=== PATIENT | male | born 1980 | race Caucasian/White ===

== ENCOUNTER 2021-01-12 17:14 | Inpatient (IN) | payer OTHER ==
[2021-01-12] MEDS ORDERED: ETOMIDATE 2 MG/ML 10 ML VIAL IVP STA (17:21)
[2021-01-12] MEDS ORDERED: ROCURONIUM 10 MG/ML (5 ML VIAL) IV ONE (17:21)
[2021-01-12] MEDS ORDERED: SODIUM CHLORIDE 0.9% 1,000 ML IV STA (17:27)
--- NOTE | 2021-01-12 17:31 | ED ---
General Adult HPI - General Chief complaint: Alcohol Stated complaint: Unresponsive Source: EMS Mode of arrival: EMS Limitations: no limitations - History of Present Illness Initial comments: Jimi is a 40-year-old male who presents the emergency department today via ambulance unresponsive. History is provided by EMS who interacted with the friend who found unresponsive at his home. Friend reported to EMS that Jimi is an alcoholic regular drinker, apparently was drinking earlier in the day and use day at home breath alcohol test this stated his alcohol was over 200. Friend apparently returned at home this evening and found him unresponsive outside on the concrete. Patient was breathing and had a pulse but would not wake up so EMS was contacted. EMS arrived on scene found the patient on the ground, unresponsive, blood glucose was in the 180s, patient was hypertensive and tachycardic. IV access was obtained patient was given Narcan with no improvement, and oropharyngeal airway was placed respirations were assisted with BVM and the patient was transported the hospital for further treatment. - Related Data Allergies Allergy/AdvReac Type Severity Reaction Status Date / Time Unable to Assess Allergy Verified 01/12/21 17:26 Review of Systems ROS Statement: Those systems with pertinent positive or pertinent negative responses have been documented in the HPI. ROS Other: All systems not noted in ROS Statement are negative. Past Medical History Past Medical History: Unable to Obtain History of Any Multi-Drug Resistant Organisms: Unobtainable Past Surgical History: Unable to Obtain Past Psychological History: Unable to Obtain Smoking Status: Unknown if ever smoked Past Alcohol Use History: Unable to Obtain Past Drug Use History: Unable to Obtain General Exam - General Exam Comments Initial Comments: Physical Exam GENERAL: Unresponsive HENT: Normocephalic, Atraumatic. Left ear is dark purple, appears to have been laid on for extended period of time Dried vomitus on left side of face/head EYES: Pupils 3mm equal and reactive PULMONARY: Minimal respiratory effort prior to intubation Coarse breath sounds bilaterally after CARDIOVASCULAR: Tachycardia, regular ABDOMEN: Soft normal bowel sounds. SKIN: Abrasion to left forearm, left knee : Normal external genitalia NEUROLOGIC: Unresponsive Did have episode of coughing but did not attempt to move remove OPA MUSCULOSKELETAL: abrasions, no deformity PSYCHIATRIC: Unable to assess Limitations: no limitations Course Vital Signs 01/12/21 01/12/21 01/12/21 17:15 17:26 18:38 Temperature 97.6 F 96.6 F L Pulse Rate 139 H 149 H 104 H Respiratory 10 L 16 14 Rate Blood Pressure 170/112 129/88 O2 Sat by Pulse 100 98 100 Oximetry 01/12/21 01/12/21 01/12/21 18:45 19:00 19:10 Temperature 96.4 F L 95.0 F L Pulse Rate 100 96 95 Respiratory 17 18 14 Rate Blood Pressure 118/83 113/72 113/72 O2 Sat by Pulse 100 99 99 Oximetry 01/12/21 01/12/21 01/12/21 19:20 19:30 19:40 Temperature 96 F L 95.5 F L Pulse Rate 94 96 94 Respiratory 14 14 14 Rate Blood Pressure 119/79 119/79 118/70 O2 Sat by Pulse 99 97 97 Oximetry EKG Findings - EKG Comments: EKG Findings:: EKG was obtained due to tachycardia, EKG obtained at 1748 rate is 107 rhythm is sinus there is a normal axis, there are normal intervals, LA 148, QRS 90, QTC 467 there are no acute ST elevations or depressions there is no evidence of ischemia or infarction. Procedures - Intubation Sedative: Etomidate Paralytic: Rocuronium Laryngoscope: Kelsey Size: 4 ET Tube Size: 8 ET Tube Uncuffed: No Tube Secured Depth (cm): 23 Tube Placement Confirmation: visualized tube passing through cords, equal breath sounds bilaterally, no breath sounds over epigastrium Patient Tolerated Procedure: well Intubation Complications: none Medical Decision Making - Medical Decision Making Patient was seen and evaluated immediately upon arrival to the emergency department Patient was unresponsive no gag reflex had an oral pharyngeal airway in place IV access was obtained, patient's jaw was clamped ounce RSI medications were used and patient was intubated Sedation labs and imaging were obtained Labs are significant for evidence of hemoconcentration and dehydration hemoglobin is 18, IV fluids are infusing Alcohol level significantly elevated at 556 CT of the head was negative for acute findings The patient vital signs normalized after appropriate sedation This time patient will be admitted to the ICU for alcohol intoxication requiring intubation due to respiratory failure Patient care was discussed with grooving lathe tender on-call Dr. Nate wilkinson who accepts the patient to the ICU, currently no ICU beds available therefore patient will remain in the ER Patient care was discussed with sound physician Dr. Roberson who accepts the admission, we did discuss uncertain if patient intended self-harm - Lab Data Result diagrams: 01/12/21 17:47 01/12/21 17:47 Lab Results 01/12/21 01/12/21 01/12/21 Range/Units 17:37 17:47 17:47 WBC 8.8 (3.8-10.6) k/uL RBC 4.98 (4.30-5.90) m/uL Hgb 18.0 H (13.0-17.5) gm/dL Hct 53.5 H (39.0-53.0) % MCV 107.3 H (80.0-100.0) fL MCH 36.2 H (25.0-35.0) pg MCHC 33.7 (31.0-37.0) g/dL RDW 12.9 (11.5-15.5) % Plt Count 140 L (150-450) k/uL MPV 8.1 Neutrophils % 71 % Lymphocytes % 21 % Monocytes % 3 % Eosinophils % 1 % Basophils % 1 % Neutrophils # 6.3 (1.3-7.7) k/uL Lymphocytes # 1.9 (1.0-4.8) k/uL Monocytes # 0.3 (0-1.0) k/uL Eosinophils # 0.1 (0-0.7) k/uL Basophils # 0.1 (0-0.2) k/uL Macrocytosis Moderate PT 9.8 (9.0-12.0) sec INR 0.9 (<1.2) Sample Site ABG pH (7.35-7.45) ABG pCO2 (35-45) mmHg ABG pO2 (83-108) mmHg ABG HCO3 (21-25) mmol/L ABG Total CO2 (19-24) mmol/L ABG O2 Saturation (94-97) % ABG Base Excess mmol/L David Test FiO2 % Sodium (137-145) mmol/L Potassium (3.5-5.1) mmol/L Chloride (98-107) mmol/L Carbon Dioxide (22-30) mmol/L Anion Gap mmol/L BUN (9-20) mg/dL Creatinine (0.66-1.25) mg/dL Est GFR (CKD-EPI)AfAm (>60 ml/min/1.73 sqM) Est GFR (CKD-EPI)NonAf (>60 ml/min/1.73 sqM) Glucose (74-99) mg/dL Lactic Ac Sepsis Rflx Plasma Lactic Acid Jose (0.7-2.0) mmol/L Calcium (8.4-10.2) mg/dL Total Bilirubin (0.2-1.3) mg/dL AST (17-59) U/L ALT (4-49) U/L Alkaline Phosphatase (38-126) U/L Creatine Kinase (55-170) U/L Total Protein (6.3-8.2) g/dL Albumin (3.5-5.0) g/dL Urine Color Light Yellow Urine Appearance Clear (Clear) Urine pH 5.0 (5.0-8.0) Ur Specific Marion 1.010 (1.001-1.035) Urine Protein Trace H (Negative) Urine Glucose (UA) Trace H (Negative) Urine Ketones Negative (Negative) Urine Blood Trace H (Negative) Urine Nitrite Negative (Negative) Urine Bilirubin Negative (Negative) Urine Urobilinogen <2.0 (<2.0) mg/dL Ur Leukocyte Esterase Negative (Negative) Urine WBC <1 (0-5) /hpf Urine Mucus Rare H (None) /hpf Salicylates mg/dL Urine Opiates Screen Not Detected (NotDetected) Ur Oxycodone Screen Not Detected (NotDetected) Urine Methadone Screen Not Detected (NotDetected) Ur Propoxyphene Screen Not Detected (NotDetected) Acetaminophen ug/mL Ur Barbiturates Screen Not Detected (NotDetected) U Tricyclic Antidepress Not Detected (NotDetected) Ur Phencyclidine Scrn Not Detected (NotDetected) Ur Amphetamines Screen Not Detected (NotDetected) U Methamphetamines Scrn Not Detected (NotDetected) U Benzodiazepines Scrn Not Detected (NotDetected) Urine Cocaine Screen Not Detected (NotDetected) U Marijuana (THC) Screen Not Detected (NotDetected) Serum Alcohol mg/dL Coronavirus (PCR) (Not Detectd) 01/12/21 01/12/21 01/12/21 Range/Units 17:47 17:47 18:21 WBC (3.8-10.6) k/uL RBC (4.30-5.90) m/uL Hgb (13.0-17.5) gm/dL Hct (39.0-53.0) % MCV (80.0-100.0) fL MCH (25.0-35.0) pg MCHC (31.0-37.0) g/dL RDW (11.5-15.5) % Plt Count (150-450) k/uL MPV Neutrophils % % Lymphocytes % % Monocytes % % Eosinophils % % Basophils % % Neutrophils # (1.3-7.7) k/uL Lymphocytes # (1.0-4.8) k/uL Monocytes # (0-1.0) k/uL Eosinophils # (0-0.7) k/uL Basophils # (0-0.2) k/uL Macrocytosis PT (9.0-12.0) sec INR (<1.2) Sample Site ABG pH (7.35-7.45) ABG pCO2 (35-45) mmHg ABG pO2 (83-108) mmHg ABG HCO3 (21-25) mmol/L ABG Total CO2 (19-24) mmol/L ABG O2 Saturation (94-97) % ABG Base Excess mmol/L David Test FiO2 % Sodium 149 H (137-145) mmol/L Potassium 5.3 H (3.5-5.1) mmol/L Chloride 113 H (98-107) mmol/L Carbon Dioxide 17 L (22-30) mmol/L Anion Gap 19 mmol/L BUN 7 L (9-20) mg/dL Creatinine 0.72 (0.66-1.25) mg/dL Est GFR (CKD-EPI)AfAm >90 (>60 ml/min/1.73 sqM) Est GFR (CKD-EPI)NonAf >90 (>60 ml/min/1.73 sqM) Glucose 135 H (74-99) mg/dL Lactic Ac Sepsis Rflx Y Plasma Lactic Acid Jose 3.0 H* (0.7-2.0) mmol/L Calcium 8.2 L (8.4-10.2) mg/dL Total Bilirubin 0.6 (0.2-1.3) mg/dL AST 63 H (17-59) U/L ALT 45 (4-49) U/L Alkaline Phosphatase 85 (38-126) U/L Creatine Kinase 445 H (55-170) U/L Total Protein 8.7 H (6.3-8.2) g/dL Albumin 5.0 (3.5-5.0) g/dL Urine Color Urine Appearance (Clear) Urine pH (5.0-8.0) Ur Specific Marion (1.001-1.035) Urine Protein (Negative) Urine Glucose (UA) (Negative) Urine Ketones (Negative) Urine Blood (Negative) Urine Nitrite (Negative) Urine Bilirubin (Negative) Urine Urobilinogen (<2.0) mg/dL Ur Leukocyte Esterase (Negative) Urine WBC (0-5) /hpf Urine Mucus (None) /hpf Salicylates <1.0 mg/dL Urine Opiates Screen (NotDetected) Ur Oxycodone Screen (NotDetected) Urine Methadone Screen (NotDetected) Ur Propoxyphene Screen (NotDetected) Acetaminophen <10.0 ug/mL Ur Barbiturates Screen (NotDetected) U Tricyclic Antidepress (NotDetected) Ur Phencyclidine Scrn (NotDetected) Ur Amphetamines Screen (NotDetected) U Methamphetamines Scrn (NotDetected) U Benzodiazepines Scrn (NotDetected) Urine Cocaine Screen (NotDetected) U Marijuana (THC) Screen (NotDetected) Serum Alcohol 556 H* mg/dL Coronavirus (PCR) (Not Detectd) 01/12/21 01/12/21 Range/Units 18:40 19:14 WBC (3.8-10.6) k/uL RBC (4.30-5.90) m/uL Hgb (13.0-17.5) gm/dL Hct (39.0-53.0) % MCV (80.0-100.0) fL MCH (25.0-35.0) pg MCHC (31.0-37.0) g/dL RDW (11.5-15.5) % Plt Count (150-450) k/uL MPV Neutrophils % % Lymphocytes % % Monocytes % % Eosinophils % % Basophils % % Neutrophils # (1.3-7.7) k/uL Lymphocytes # (1.0-4.8) k/uL Monocytes # (0-1.0) k/uL Eosinophils # (0-0.7) k/uL Basophils # (0-0.2) k/uL Macrocytosis PT (9.0-12.0) sec INR (<1.2) Sample Site rbrach ABG pH 7.25 L (7.35-7.45) ABG pCO2 50 H (35-45) mmHg ABG pO2 >400 H (83-108) mmHg ABG HCO3 22 (21-25) mmol/L ABG Total CO2 23 (19-24) mmol/L ABG O2 Saturation 99.8 H (94-97) % ABG Base Excess -5.5 mmol/L David Test Yes FiO2 100 % Sodium (137-145) mmol/L Potassium (3.5-5.1) mmol/L Chloride (98-107) mmol/L Carbon Dioxide (22-30) mmol/L Anion Gap mmol/L BUN (9-20) mg/dL Creatinine (0.66-1.25) mg/dL Est GFR (CKD-EPI)AfAm (>60 ml/min/1.73 sqM) Est GFR (CKD-EPI)NonAf (>60 ml/min/1.73 sqM) Glucose (74-99) mg/dL Lactic Ac Sepsis Rflx Plasma Lactic Acid Jose (0.7-2.0) mmol/L Calcium (8.4-10.2) mg/dL Total Bilirubin (0.2-1.3) mg/dL AST (17-59) U/L ALT (4-49) U/L Alkaline Phosphatase (38-126) U/L Creatine Kinase (55-170) U/L Total Protein (6.3-8.2) g/dL Albumin (3.5-5.0) g/dL Urine Color Urine Appearance (Clear) Urine pH (5.0-8.0) Ur Specific Marion (1.001-1.035) Urine Protein (Negative) Urine Glucose (UA) (Negative) Urine Ketones (Negative) Urine Blood (Negative) Urine Nitrite (Negative) Urine Bilirubin (Negative) Urine Urobilinogen (<2.0) mg/dL Ur Leukocyte Esterase (Negative) Urine WBC (0-5) /hpf Urine Mucus (None) /hpf Salicylates mg/dL Urine Opiates Screen (NotDetected) Ur Oxycodone Screen (NotDetected) Urine Methadone Screen (NotDetected) Ur Propoxyphene Screen (NotDetected) Acetaminophen ug/mL Ur Barbiturates Screen (NotDetected) U Tricyclic Antidepress (NotDetected) Ur Phencyclidine Scrn (NotDetected) Ur Amphetamines Screen (NotDetected) U Methamphetamines Scrn (NotDetected) U Benzodiazepines Scrn (NotDetected) Urine Cocaine Screen (NotDetected) U Marijuana (THC) Screen (NotDetected) Serum Alcohol mg/dL Coronavirus (PCR) Not Detected (Not Detectd) Critical Care Time Critical Care Time: Yes Total Critical Care Time: 30 Disposition Clinical Impression: Alcoholic intoxication Disposition: ADMITTED IP TO THIS [facility] Condition: Serious Referrals: None,Stated [Primary Care Provider] - 1-2 days
[2021-01-12 17:43] LABS: Appearance,Urine Clear (Clear); Bilirubin,Urine Negative (Negative); Blood,Urine Trace (Negative); Color,Urine Light Yellow; Glucose,Urine (UA) Trace (Negative); Ketones,Urine Negative (Negative); Leukocyte Esterase,Urine Negative (Negative); Mucus,Urine Rare /hpf; Nitrite,Urine Negative (Negative); Protein,Urine Trace (Negative); Urobilinogen,Urine <2.0 mg/dL (<2.0); WBC,Urine <1 /hpf (0-5)
[2021-01-12 17:51] LABS: Amphetamine Screen,Urine Not Detected (NotDetected); Barbiturate Screen,Urine Not Detected (NotDetected); Benzodiazepines Screen,Urine Not Detected (NotDetected); Cocaine Screen,Urine Not Detected (NotDetected); Methadone Screen, Urine Not Detected (NotDetected); Opiate Screen,Urine Not Detected (NotDetected); Oxycodone Screen, Urine Not Detected (NotDetected); Phencyclidine Screen,Urine Not Detected (NotDetected); Tricyclic Antidepressant,Urine Not Detected (NotDetected); Urn Cannabinoid Scrn Not Detected (NotDetected)
[2021-01-12 17:56] LABS: Basophils # (A) 0.1 k/uL (0-0.2); Basophils % (A) 1 %; Eosinophils # (A) 0.1 k/uL (0-0.7); Eosinophils % (A) 1 %; HCT 53.5 % (39.0-53.0); Lymphocytes # (A) 1.9 k/uL (1.0-4.8); Lymphocytes % (A) 21 %; MCH 36.2 pg (25.0-35.0); MCHC 33.7 g/dL (31.0-37.0); MCV 107.3 fL (80.0-100.0); Macrocytosis Moderate; Mean Platelet Volume 8.1; Monocytes # (A) 0.3 k/uL (0-1.0); Monocytes % (A) 3 %; Neutrophils # (A) 6.3 k/uL (1.3-7.7); Neutrophils % (A) 71 %; Platelet Count 140 k/uL (150-450); RBC 4.98 m/uL (4.30-5.90); RDW 12.9 % (11.5-15.5); WBC 8.8 k/uL (3.8-10.6)
--- NOTE | 2021-01-12 17:59 | XR ---
EXAMINATION TYPE: XR chest 1V portable DATE OF EXAM: 01/12/2021 COMPARISON: NONE HISTORY: Respiratory failure TECHNIQUE: Single view FINDINGS: Endotracheal tube is 3.5 cm from the girish. There is nasogastric tube looped in the stomac h. Heart and mediastinum appear normal. Lungs are clear of infiltrate. There is no pleural effusion o r pneumothorax. There are chest leads. IMPRESSION: No active cardiopulmonary disease. Tubing in good position.
[2021-01-12 18:00] LABS: INR 0.9 (<1.2); Prothrombin Time 9.8 sec (9.0-12.0)
[2021-01-12 18:06] LABS: ALT 45 U/L (4-49); AST 63 U/L (17-59); Acetaminophen <10.0 ug/mL; African American GFR (CKD) >90 (>60 ml/min/1.73 sqM); Alkaline Phosphatase 85 U/L (38-126); Anion Gap 19 mmol/L; Blood Urea Nitrogen 7 mg/dL (9-20); Calcium 8.2 mg/dL (8.4-10.2); Carbon Dioxide 17 mmol/L (22-30); Chloride 113 mmol/L (98-107); Creatine Kinase 445 U/L (55-170); Glucose 135 mg/dL (74-99); Non-African American GFR(CKD) >90 (>60 ml/min/1.73 sqM); Salicylate <1.0 mg/dL; Sodium 149 mmol/L (137-145); Total Bilirubin 0.6 mg/dL (0.2-1.3); Total Protein 8.7 g/dL (6.3-8.2)
[2021-01-12 18:20] LABS: Alcohol 556 mg/dL
--- NOTE | 2021-01-12 18:32 | CT ---
EXAMINATION TYPE: CT brain wo con DATE OF EXAM: 01/12/2021 COMPARISON: None HISTORY: unresponsive CT DLP: 1125.4 mGycm Automated exposure control for dose reduction was used. Ventricles have normal size. There is no mass effect nor midline shift. There is no sign of intracran ial hemorrhage. The calvarium is intact. There is normal aeration of the mastoid sinuses. Skull base is intact. IMPRESSION: Negative unenhanced head CT scan.
[2021-01-12 18:34] LABS: Potassium 5.3 mmol/L (3.5-5.1)
[2021-01-12] MEDS ORDERED: NALOXONE 0.4 MG/ML 1 ML VIAL IV PRN (19:07)
[2021-01-12 19:17] LABS: ABG Base Excess -5.5 mmol/L; ABG HCO3 22 mmol/L (21-25); ABG Oxygen Saturation 99.8 % (94-97); ABG PCO2 50 mmHg (35-45); ABG PH 7.25 (7.35-7.45); ABG PO2 >400 mmHg (83-108); ABG TCO2 23 mmol/L (19-24); Allen Test Performed? Yes
[2021-01-12] MEDS: SODIUM CHLORIDE 0.9% 1,000 ML IV SCH (19:22)
[2021-01-12] MEDS: PANTOPRAZOLE 40 MG/10 ML VIAL IVP SCH (21:53)
[2021-01-12] MEDS: THIAMINE 100 MG/ML 2 ML VIAL IVP SCH (21:54)
--- NOTE | 2021-01-13 01:02 | P.HPIM ---
History of Present Illness H&P Date: 01/12/21 Chief Complaint: Unresponsive 40-year-old male unknown past medical history Patient was home when he was found unresponsive by his friend who reports that patient drinks heavily every day. Patient was seen by his friend in the morning when he was drinking and then was found later a site his home on a concrete unresponsive by his friend in the evening claims that he had pulse at that time he notified EMS who found that he has a blood sugar of 180 gave him some Narcan with no improvement Patient was brought into the hospital intubated. Blood work showed A alcohol level of 556, CT of the head was negative for any acute pathology. Blood work showed mixed respiratory and metabolic acidosis Review of Systems ROS unobtainable: due to mental status Past Medical History Past Medical History: Unable to Obtain History of Any Multi-Drug Resistant Organisms: Unobtainable Past Surgical History: Unable to Obtain Past Psychological History: Unable to Obtain Smoking Status: Unknown if ever smoked Past Alcohol Use History: Unable to Obtain Past Drug Use History: Unable to Obtain - Past Family History Family Family Medical History: Unable to Obtain Medications and Allergies Allergies Allergy/AdvReac Type Severity Reaction Status Date / Time Unable to Assess Allergy Verified 01/12/21 17:26 Physical Exam Vitals: Vital Signs Temp Pulse Resp BP Pulse Ox 01/12/21 19:40 95.5 F L 94 14 118/70 97 01/12/21 19:30 96 14 119/79 97 01/12/21 19:20 96 F L 94 14 119/79 99 01/12/21 19:10 95 14 113/72 99 01/12/21 19:00 95.0 F L 96 18 113/72 99 01/12/21 18:45 96.4 F L 100 17 118/83 100 01/12/21 18:38 96.6 F L 104 H 14 129/88 100 01/12/21 17:26 149 H 16 98 01/12/21 17:15 97.6 F 139 H 10 L 170/112 100 Intake and Output 01/12/21 01/12/21 01/12/21 06:59 14:59 22:59 Intake Total 7.018 Balance 7.018 Intake: Intake, IV Titration 7.018 Amount propofoL 1,000 mg In 7.018 Empty Bag 1 bag @ Titrate IV .Q0M [facility] Rx#: [id number] Other: Weight 107.955 kg Constitutional: Unresponsive, intubated, on propofol Eyes: Anicteric sclerae, moist conjunctiva, Pupils equal round reactive to light ENMT: NC/AT Neck: Supple, no masses, or JVD No carotid bruits No thyromegaly Lungs: Clear to auscultation Clear to percussion Normal respiratory effort, no accessory muscle use Cardiovascular: Heart regular in rate and rhythm, No murmurs, gallops, or rubs No peripheral edema Abdominal: Soft, Alvarado catheter in place Nontender, no guarding, rebound or rigidity Abdomen moving with respiration Normoactive bowel sounds No hepatomegaly, No splenomegaly No palpable mass No abdominal wall hernia noted Skin: Callosities over the metacarpophalangeal joints on the palm of bilateral hands otherwise Normal temperature, tone, texture, turgor No induration No subcutaneous nodules No rash, lesions No ulcers Extremities: No digital cyanosis No clubbing Pedal pulses intact and symmetrical Radial pulses intact and symmetrical No calf tenderness Psychiatric: Unresponsive intubated and sedated Neuro unable to assess patient intubated and sedated Lymphatics: no palpable cervical or supraclavicular , or inguinal lymph nodes Results CBC & Chem 7: 01/12/21 17:47 01/12/21 17:47 Labs: Abnormal Lab Results - Last 24 Hours (Table) 01/12/21 01/12/21 01/12/21 Range/Units 17:37 17:47 17:47 Hgb 18.0 H (13.0-17.5) gm/dL Hct 53.5 H (39.0-53.0) % MCV 107.3 H (80.0-100.0) fL MCH 36.2 H (25.0-35.0) pg Plt Count 140 L (150-450) k/uL ABG pH (7.35-7.45) ABG pCO2 (35-45) mmHg ABG pO2 (83-108) mmHg ABG O2 Saturation (94-97) % Sodium 149 H (137-145) mmol/L Potassium 5.3 H (3.5-5.1) mmol/L Chloride 113 H (98-107) mmol/L Carbon Dioxide 17 L (22-30) mmol/L BUN 7 L (9-20) mg/dL Glucose 135 H (74-99) mg/dL Plasma Lactic Acid Jose (0.7-2.0) mmol/L Calcium 8.2 L (8.4-10.2) mg/dL AST 63 H (17-59) U/L Creatine Kinase 445 H (55-170) U/L Total Protein 8.7 H (6.3-8.2) g/dL Urine Protein Trace H (Negative) Urine Glucose (UA) Trace H (Negative) Urine Blood Trace H (Negative) Urine Mucus Rare H (None) /hpf Serum Alcohol 556 H* mg/dL 01/12/21 01/12/21 Range/Units 17:47 19:14 Hgb (13.0-17.5) gm/dL Hct (39.0-53.0) % MCV (80.0-100.0) fL MCH (25.0-35.0) pg Plt Count (150-450) k/uL ABG pH 7.25 L (7.35-7.45) ABG pCO2 50 H (35-45) mmHg ABG pO2 >400 H (83-108) mmHg ABG O2 Saturation 99.8 H (94-97) % Sodium (137-145) mmol/L Potassium (3.5-5.1) mmol/L Chloride (98-107) mmol/L Carbon Dioxide (22-30) mmol/L BUN (9-20) mg/dL Glucose (74-99) mg/dL Plasma Lactic Acid Jose 3.0 H* (0.7-2.0) mmol/L Calcium (8.4-10.2) mg/dL AST (17-59) U/L Creatine Kinase (55-170) U/L Total Protein (6.3-8.2) g/dL Urine Protein (Negative) Urine Glucose (UA) (Negative) Urine Blood (Negative) Urine Mucus (None) /hpf Serum Alcohol mg/dL Assessment and Plan Assessment: Acute severe alcohol intoxication Acute metabolic encephalopathy Ventilator-dependent respiratory failure Plan Supportive care Sedated with propofol [facility] care ICU consult Thiamine and folic acid IV fluid hydration Neurochecks CODE STATUS: Full code* DVT prophylaxis: Lovenox subcu Discussed with: Patient, ER, RN Anticipated length of stay more than [address]: Pending clinical course A total of 65 minutes was spent on the care of this complex patient more than 50% of the time was spent in counseling and care coordination.
[2021-01-13] MEDS: MIDAZOLAM HCL 50 MG in SODIUM CHLORIDE 0.9% 40 ML IV SCH (01:38)
[2021-01-13 03:23] LABS: Basophils # (A) 0.1 k/uL (0-0.2); Basophils % (A) 1 %; Eosinophils % (A) 0 %; HCT 48.3 % (39.0-53.0); Lymphocytes # (A) 3.3 k/uL (1.0-4.8); Lymphocytes % (A) 33 %; MCH 33.7 pg (25.0-35.0); MCHC 30.8 g/dL (31.0-37.0); MCV 109.4 fL (80.0-100.0); Macrocytosis Marked; Monocytes # (A) 0.5 k/uL (0-1.0); Monocytes % (A) 5 %; Neutrophils # (A) 5.8 k/uL (1.3-7.7); Neutrophils % (A) 58 %; Platelet Count 140 k/uL (150-450); RBC 4.41 m/uL (4.30-5.90); RDW 13.6 % (11.5-15.5); WBC 9.9 k/uL (3.8-10.6)
[2021-01-13 03:24] LABS: HGB 14.9 gm/dL (13.0-17.5)
[2021-01-13 03:32] LABS: ALT 33 U/L (4-49); African American GFR (CKD) >90 (>60 ml/min/1.73 sqM); Albumin 3.4 g/dL (3.5-5.0); Anion Gap 11 mmol/L; Blood Urea Nitrogen 8 mg/dL (9-20); Calcium 7.7 mg/dL (8.4-10.2); Carbon Dioxide 19 mmol/L (22-30); Chloride 116 mmol/L (98-107); Glucose 98 mg/dL (74-99); Non-African American GFR(CKD) >90 (>60 ml/min/1.73 sqM); Sodium 146 mmol/L (137-145); Total Bilirubin 0.3 mg/dL (0.2-1.3); Total Protein 6.1 g/dL (6.3-8.2)
[2021-01-13 04:16] LABS: Potassium 4.9 mmol/L (3.5-5.1)
[2021-01-13 04:17] LABS: AST 45 U/L (17-59); Alkaline Phosphatase 56 U/L (38-126)
[2021-01-13 06:01] LABS: ABG Base Excess -1.3 mmol/L; ABG HCO3 25 mmol/L (21-25); ABG Oxygen Saturation 97.6 % (94-97); ABG PCO2 45 mmHg (35-45); ABG PH 7.34 (7.35-7.45); ABG PO2 105 mmHg (83-108); ABG TCO2 26 mmol/L (19-24); Allen Test Performed? Yes
[2021-01-13] MEDS: SODIUM CHLORIDE 0.9% 1,000 ML IV SCH ×2 (07:36→21:50)
--- NOTE | 2021-01-13 08:38 | XR ---
EXAMINATION TYPE: XR chest 1V portable DATE OF EXAM: 01/13/2021 CLINICAL HISTORY: Difficulty breathing progress study. TECHNIQUE: Single AP portable upright view of the chest is obtained. COMPARISON: Chest x-ray from one day earlier FINDINGS: Stable endotracheal and orogastric tubes. Persistent low lung volumes and chronic parenchy mal change with developing right basilar opacity. Cardiac silhouette size stable and within normal li mits. Osseous structures are intact. IMPRESSION: Low lung volumes with developing right basilar atelectasis and/or infiltrate.
[2021-01-13] MEDS: THIAMINE 100 MG/ML 2 ML VIAL IVP SCH (08:48)
[2021-01-13] MEDS: ENOXAPARIN 40 MG/0.4 ML SYRINGE SQ SCH (08:48)
[2021-01-13] MEDS: PANTOPRAZOLE 40 MG/10 ML VIAL IVP SCH (08:48)
--- NOTE | 2021-01-13 10:29 | P.CNPUL ---
History of Present Illness Consult date: 01/13/21 Requesting physician: Vonda Mosley Reason for consult: other Chief complaint: Alcohol intoxication, respiratory failure. History of present illness: 40-year-old male, seen by Dr. Boroks in the emergency department. He was brought into the emergency department by EMS. Apparently the patient was found to be unresponsive by a friend. Apparently the patient is a regular drinker, and maybe even an alcoholic. He apparently been drinking earlier in the day. When his friend returned home, the patient apparently had a pulse, but would not wake up. EMS was contacted and brought the patient into the emergency room. He was given IV access. His blood glucose was 180. The patient was given Narcan without improvement. An oropharyngeal airway was placed. In the emergency department, because of his unresponsiveness, and inability to protect his airway, the patient was intubated by Dr. Brooks. He remains on the mechanical ventilator at this time. Currently, he's on the volume assist control mode, rate of 14, tidal volume 500, FiO2 40%, and PEEP of 5. Blood gases show pO2 105, pCO2 45, pH 7.34. He is on propofol 75 mcg/kg/m, saline at 75 is an hour, and Versed, at 4 mg an hour. The patient's alcohol level when he came into the emergency room was 556. The rest of his drug screen was negative. Not much more as noted about his history including ALLERGIES medications her past medical history. Review of Systems The patient's review of systems cannot be obtained. He is currently sedated on the ventilator. He was found by a friend to be unresponsive. Past Medical History Past Medical History: Unable to Obtain History of Any Multi-Drug Resistant Organisms: Unobtainable Past Surgical History: Unable to Obtain Past Psychological History: Unable to Obtain Smoking Status: Unknown if ever smoked Past Alcohol Use History: Unable to Obtain Past Drug Use History: Unable to Obtain - Past Family History Family Family Medical History: Unable to Obtain Medications and Allergies Home Medications Medication Instructions Recorded Confirmed Type No Known Home Medications 01/13/21 01/13/21 History Allergies Allergy/AdvReac Type Severity Reaction Status Date / Time Unable to Assess Allergy Verified 01/12/21 17:26 Physical Exam Osteopathic Statement: *. No significant issues noted on an osteopathic structural exam other than those noted in the History and Physical/Consult. Vitals: Vital Signs Temp Pulse Resp BP Pulse Ox 01/13/21 09:43 102 H 14 123/78 98 01/13/21 08:53 97.6 F 112 H 20 122/82 97 01/13/21 08:12 112 H 14 121/86 99 01/13/21 07:24 125 H 20 122/89 98 01/13/21 06:30 110 H 16 124/85 97 01/13/21 06:00 106 H 15 121/87 98 01/13/21 05:30 98.6 F 106 H 17 118/82 99 01/13/21 05:00 102 H 18 117/86 99 01/13/21 04:30 104 H 17 128/92 100 01/13/21 04:00 98.1 F 108 H 18 119/77 99 01/13/21 03:30 101 H 14 106/63 98 01/13/21 03:00 98 14 121/76 98 01/13/21 02:30 97.6 F 98 15 116/73 99 01/13/21 02:00 98 15 110/78 98 01/13/21 01:30 99 15 104/70 98 01/13/21 01:00 101 H 15 119/89 97 01/13/21 00:30 113 H 29 H 133/97 97 01/13/21 00:00 97.3 F L 114 H 18 106/70 100 01/12/21 23:30 96 14 105/69 98 01/12/21 23:00 95 14 104/69 98 01/12/21 22:30 93 14 97/65 98 01/12/21 22:00 95 14 106/71 97 01/12/21 21:30 96.8 F L 96 14 114/74 99 01/12/21 21:00 106 H 17 103/71 99 01/12/21 20:30 91 14 108/67 97 01/12/21 20:00 96.3 F L 92 14 118/70 97 01/12/21 19:40 95.5 F L 94 14 118/70 97 01/12/21 19:30 96 14 119/79 97 01/12/21 19:20 96 F L 94 14 119/79 99 01/12/21 19:10 95 14 113/72 99 01/12/21 19:00 95.0 F L 96 18 113/72 99 01/12/21 18:45 96.4 F L 100 17 118/83 100 01/12/21 18:38 96.6 F L 104 H 14 129/88 100 01/12/21 17:26 149 H 16 98 01/12/21 17:15 97.6 F 139 H 10 L 170/112 100 Intake and Output 01/12/21 01/13/21 01/13/21 22:59 06:59 14:59 Intake Total 138.325 261.675 194.268 Balance 138.325 261.675 194.268 Intake: Intake, IV Titration 138.325 261.675 194.268 Amount Midazolam HCl 50 mg In 13.3 Sodium Chloride 0.9% 40 ml @ 1 MG/HR 1 mls/hr IV .Q24H REY Rx#:[id number] propofoL 1,000 mg In 138.325 261.675 180.968 Empty Bag 1 bag @ Titrate IV .Q0M REY Rx#: [id number] Other: Weight 107.955 kg No acute distress, sedated, on the ventilator, with an orally placed endotracheal tube. HEENT examination is grossly unremarkable. Neck supple. Full range of motion. No adenopathy thyromegaly or neck vein distention. Cardiovascular examination reveals regular rhythm rate. S1-S2 normal. No S3 or S4. No discernible murmur noted. Heart rate 102 bpm. Lungs reveal scattered bilateral rhonchi. No wheezes. No crackles. Breath sounds equal bilaterally. Abdomen soft bowel sounds are heard. No masses or tenderness. Extremities are intact. No cyanosis clubbing or edema. Skin is without rash or lesion. Neurologic examination could not be assessed at this time. Results - Laboratory Findings CBC and BMP: 01/13/21 02:54 01/13/21 02:54 ABG ABG pH 7.34 (7.35-7.45) L 01/13/21 05:58 ABG pCO2 45 mmHg (35-45) 01/13/21 05:58 ABG pO2 105 mmHg (83-108) 01/13/21 05:58 ABG O2 Saturation 97.6 % (94-97) H 01/13/21 05:58 PT/INR, D-dimer PT 9.8 sec (9.0-12.0) 01/12/21 17:47 INR 0.9 (<1.2) 01/12/21 17:47 Abnormal lab findings: Abnormal Labs 01/12/21 01/12/21 01/12/21 17:37 17:47 17:47 Hgb 18.0 H Hct 53.5 H MCV 107.3 H MCH 36.2 H MCHC Plt Count 140 L Macrocytosis ABG pH ABG pCO2 ABG pO2 ABG Total CO2 ABG O2 Saturation Sodium 149 H Potassium 5.3 H Chloride 113 H Carbon Dioxide 17 L BUN 7 L Glucose 135 H Plasma Lactic Acid Jose Calcium 8.2 L AST 63 H Creatine Kinase 445 H Total Protein 8.7 H Albumin Urine Protein Trace H Urine Glucose (UA) Trace H Urine Blood Trace H Urine Mucus Rare H Serum Alcohol 556 H* 01/12/21 01/12/21 01/12/21 17:47 19:14 21:06 Hgb Hct MCV MCH MCHC Plt Count Macrocytosis ABG pH 7.25 L ABG pCO2 50 H ABG pO2 >400 H ABG Total CO2 ABG O2 Saturation 99.8 H Sodium Potassium Chloride Carbon Dioxide BUN Glucose Plasma Lactic Acid Jose 3.0 H* 2.3 H* Calcium AST Creatine Kinase Total Protein Albumin Urine Protein Urine Glucose (UA) Urine Blood Urine Mucus Serum Alcohol 01/12/21 01/13/21 01/13/21 23:39 02:54 02:54 Hgb Hct MCV 109.4 H MCH MCHC 30.8 L Plt Count 140 L Macrocytosis Marked A ABG pH ABG pCO2 ABG pO2 ABG Total CO2 ABG O2 Saturation Sodium 146 H Potassium Chloride 116 H Carbon Dioxide 19 L BUN 8 L Glucose Plasma Lactic Acid Jose 2.2 H* Calcium 7.7 L AST Creatine Kinase Total Protein 6.1 L Albumin 3.4 L Urine Protein Urine Glucose (UA) Urine Blood Urine Mucus Serum Alcohol 01/13/21 05:58 Hgb Hct MCV MCH MCHC Plt Count Macrocytosis ABG pH 7.34 L ABG pCO2 ABG pO2 ABG Total CO2 26 H ABG O2 Saturation 97.6 H Sodium Potassium Chloride Carbon Dioxide BUN Glucose Plasma Lactic Acid Jose Calcium AST Creatine Kinase Total Protein Albumin Urine Protein Urine Glucose (UA) Urine Blood Urine Mucus Serum Alcohol - Diagnostic Findings Chest x-ray: image reviewed Assessment and Plan Assessment: Acute alcohol intoxication with unresponsiveness. Status post intubation and mechanical ventilation because patient cannot protect his airway, on 01/12/2021. History of chronic alcohol abuse. Plan: Plan dated 01/13/2021. The patient is evaluated. The patient is examined in the emergency department. Currently, the patient is on propofol, and Versed as noted above. We will try to make a bed for the patient in the emergency department. The Versed can be weaned off. We need a repeat alcohol level. Current laboratory data includes a white count 9.9, hemoglobin 14.9, hematocrit 48.3, and platelet count 140,000. PT and INR were 9.8 and 0.9, respectively. Blood gases show a PaO2 of 105, pCO2 45, and a pH of 7.34. Sodium 146, potassium 4.9, chlorides 116, CO2 19, anion gap 11, BUN 8, creatinine 0.74, and repeat lactic acid 1.8. AST and ALTs are normal. Albumin 3.4. Drug screen negative save for the elevated alcohol level. Urine is normal. Currently, his medications include Lovenox, Narcan, Protonix, propofol, saline, and thiamine. Prognosis is guarded. Time with Patient: Greater than 30
[2021-01-13 15:00] LABS: Glucose,Whole Blood 73 mg/dL (75-99)
--- NOTE | 2021-01-13 16:12 | P.PN ---
Subjective Progress Note Date: 01/13/21 (delayed charting seen at 1145) Principal diagnosis: altered mentation Patient is a 40-year-old male who was found unresponsive by his son and EMS was subsequently activated. He was brought to the hospital and subsequently was intubated secondary to altered mentation. In the ER his alcohol level was found to be 556. His hemoglobin was elevated at 18, platelet count 140, lactic acid 2.2, sodium 149, potassium 5.3, carbon dioxide 17, AST 63, CK 445. Was started on IV fluids. ICU was contacted and agreed with admission. Patient seen and examined at bedside. He is being held in the er as ICU overflow. He is currently sedated on Versed and propofol. General: non toxic, no distress, appears at stated age Derm: warm, dry Head: atraumatic, normocephalic, symmetric Eyes: EOMI, no lid lag, anicteric sclera Mouth: no lip lesion, mucus membranes moist Cardiovascular: S1S2 reg, no murmur, positive posterior tibial pulse bilateral, Lungs: CTA bilateral, no rhonchi, no rales , no accessory muscle use Abdominal: soft, nontender to palpation, no guarding, no appreciable organomegaly Ext: no gross muscle atrophy, no edema, no contractures Neuro: PERRL, No lid lesions, breathing over the vent, + cough, + withdrawal to pain in all 4 extremities. Psych: sedated on vent Acute alcohol intoxication, Acute encephaloapthy due to ETOH - intubated, wean as able - CIWA once extubated - thiamine and folic acid - social consult once awate Acute respiratory fialure due to altered mentation - Critical care recs. Dehydration - IVF Lactic acidosis, resolved DVT prophylaxis: Lovenox Discussed with: patient Anticipated discharge: unknown Anticipated discharge place: unknown A total of 25 minutes was spent on the care of this complex patient more than 50% of the time was spent in counseling and care coordination. Objective - Vital Signs Vital signs: Vital Signs Temp 99.1 F 01/13/21 15:30 Pulse 108 H 01/13/21 15:30 Resp 17 01/13/21 15:30 BP 141/99 01/13/21 15:30 Pulse Ox 100 01/13/21 15:30 Intake & Output 05/16/21 05/17/21 05/17/21 18:59 06:59 18:59 Intake Total 7.018 392.982 480.188 Output Total 700 Balance 7.018 392.982 -219.812 Weight 107.955 kg 107.955 kg Intake: Intake, IV Titration 7.018 392.982 480.188 Amount Midazolam HCl 50 mg In 30.0 Sodium Chloride 0.9% 40 ml @ 1 MG/HR 1 mls/hr IV .Q24H REY Rx#:[id number] propofoL 1,000 mg In 7.018 392.982 450.188 Empty Bag 1 bag @ Titrate IV .Q0M REY Rx#: [id number] Output: Urine 700 - Labs CBC & Chem 7: 01/13/21 02:54 01/13/21 02:54 Labs: Abnormal Lab Results - Last 24 Hours (Table) 01/12/21 01/12/21 01/12/21 Range/Units 17:37 17:47 17:47 Hgb 18.0 H (13.0-17.5) gm/dL Hct 53.5 H (39.0-53.0) % MCV 107.3 H (80.0-100.0) fL MCH 36.2 H (25.0-35.0) pg MCHC (31.0-37.0) g/dL Plt Count 140 L (150-450) k/uL Macrocytosis ABG pH (7.35-7.45) ABG pCO2 (35-45) mmHg ABG pO2 (83-108) mmHg ABG Total CO2 (19-24) mmol/L ABG O2 Saturation (94-97) % Sodium 149 H (137-145) mmol/L Potassium 5.3 H (3.5-5.1) mmol/L Chloride 113 H (98-107) mmol/L Carbon Dioxide 17 L (22-30) mmol/L BUN 7 L (9-20) mg/dL Glucose 135 H (74-99) mg/dL POC Glucose (mg/dL) (75-99) mg/dL Plasma Lactic Acid Jose (0.7-2.0) mmol/L Calcium 8.2 L (8.4-10.2) mg/dL AST 63 H (17-59) U/L Creatine Kinase 445 H (55-170) U/L Total Protein 8.7 H (6.3-8.2) g/dL Albumin (3.5-5.0) g/dL Urine Protein Trace H (Negative) Urine Glucose (UA) Trace H (Negative) Urine Blood Trace H (Negative) Urine Mucus Rare H (None) /hpf Serum Alcohol 556 H* mg/dL 01/12/21 01/12/21 01/12/21 Range/Units 17:47 19:14 21:06 Hgb (13.0-17.5) gm/dL Hct (39.0-53.0) % MCV (80.0-100.0) fL MCH (25.0-35.0) pg MCHC (31.0-37.0) g/dL Plt Count (150-450) k/uL Macrocytosis ABG pH 7.25 L (7.35-7.45) ABG pCO2 50 H (35-45) mmHg ABG pO2 >400 H (83-108) mmHg ABG Total CO2 (19-24) mmol/L ABG O2 Saturation 99.8 H (94-97) % Sodium (137-145) mmol/L Potassium (3.5-5.1) mmol/L Chloride (98-107) mmol/L Carbon Dioxide (22-30) mmol/L BUN (9-20) mg/dL Glucose (74-99) mg/dL POC Glucose (mg/dL) (75-99) mg/dL Plasma Lactic Acid Jose 3.0 H* 2.3 H* (0.7-2.0) mmol/L Calcium (8.4-10.2) mg/dL AST (17-59) U/L Creatine Kinase (55-170) U/L Total Protein (6.3-8.2) g/dL Albumin (3.5-5.0) g/dL Urine Protein (Negative) Urine Glucose (UA) (Negative) Urine Blood (Negative) Urine Mucus (None) /hpf Serum Alcohol mg/dL 01/12/21 01/13/21 01/13/21 Range/Units 23:39 02:54 02:54 Hgb (13.0-17.5) gm/dL Hct (39.0-53.0) % MCV 109.4 H (80.0-100.0) fL MCH (25.0-35.0) pg MCHC 30.8 L (31.0-37.0) g/dL Plt Count 140 L (150-450) k/uL Macrocytosis Marked A ABG pH (7.35-7.45) ABG pCO2 (35-45) mmHg ABG pO2 (83-108) mmHg ABG Total CO2 (19-24) mmol/L ABG O2 Saturation (94-97) % Sodium 146 H (137-145) mmol/L Potassium (3.5-5.1) mmol/L Chloride 116 H (98-107) mmol/L Carbon Dioxide 19 L (22-30) mmol/L BUN 8 L (9-20) mg/dL Glucose (74-99) mg/dL POC Glucose (mg/dL) (75-99) mg/dL Plasma Lactic Acid Jose 2.2 H* (0.7-2.0) mmol/L Calcium 7.7 L (8.4-10.2) mg/dL AST (17-59) U/L Creatine Kinase (55-170) U/L Total Protein 6.1 L (6.3-8.2) g/dL Albumin 3.4 L (3.5-5.0) g/dL Urine Protein (Negative) Urine Glucose (UA) (Negative) Urine Blood (Negative) Urine Mucus (None) /hpf Serum Alcohol mg/dL 01/13/21 01/13/21 Range/Units 05:58 14:59 Hgb (13.0-17.5) gm/dL Hct (39.0-53.0) % MCV (80.0-100.0) fL MCH (25.0-35.0) pg MCHC (31.0-37.0) g/dL Plt Count (150-450) k/uL Macrocytosis ABG pH 7.34 L (7.35-7.45) ABG pCO2 (35-45) mmHg ABG pO2 (83-108) mmHg ABG Total CO2 26 H (19-24) mmol/L ABG O2 Saturation 97.6 H (94-97) % Sodium (137-145) mmol/L Potassium (3.5-5.1) mmol/L Chloride (98-107) mmol/L Carbon Dioxide (22-30) mmol/L BUN (9-20) mg/dL Glucose (74-99) mg/dL POC Glucose (mg/dL) 73 L (75-99) mg/dL Plasma Lactic Acid Jose (0.7-2.0) mmol/L Calcium (8.4-10.2) mg/dL AST (17-59) U/L Creatine Kinase (55-170) U/L Total Protein (6.3-8.2) g/dL Albumin (3.5-5.0) g/dL Urine Protein (Negative) Urine Glucose (UA) (Negative) Urine Blood (Negative) Urine Mucus (None) /hpf Serum Alcohol mg/dL Microbiology - Last 24 Hours (Table) 01/12/21 17:47 Gram Stain - Preliminary Sputum Sputum Culture - Preliminary
[2021-01-13 17:58] LABS: Glucose,Whole Blood 75 mg/dL (75-99)
[2021-01-13] MEDS ORDERED: THIAMINE 100 MG/ML 2 ML VIAL IM STA (19:41)
[2021-01-13] MEDS ORDERED: LORazepam 2 MG/ML INJ IV PRN (19:41)
[2021-01-13] MEDS: LORazepam 2 MG/ML INJ IV PRN ×2 (21:34→23:13)
[2021-01-13 23:36] LABS: Glucose,Whole Blood 103 mg/dL (75-99)
[2021-01-14] MEDS: MIDAZOLAM HCL 50 MG in SODIUM CHLORIDE 0.9% 40 ML IV SCH (01:15)
[2021-01-14 04:55] LABS: ALT 35 U/L (4-49); AST 111 U/L (17-59); African American GFR (CKD) >90 (>60 ml/min/1.73 sqM); Albumin 3.3 g/dL (3.5-5.0); Alkaline Phosphatase 69 U/L (38-126); Anion Gap 5 mmol/L; Blood Urea Nitrogen 8 mg/dL (9-20); Calcium 8.4 mg/dL (8.4-10.2); Carbon Dioxide 26 mmol/L (22-30); Chloride 105 mmol/L (98-107); Glucose 99 mg/dL (74-99); Non-African American GFR(CKD) >90 (>60 ml/min/1.73 sqM); Sodium 136 mmol/L (137-145); Total Bilirubin 0.9 mg/dL (0.2-1.3); Total Protein 6.1 g/dL (6.3-8.2)
[2021-01-14 05:00] LABS: Basophils # (A) 0.1 k/uL (0-0.2); Basophils % (A) 1 %; Eosinophils % (A) 0 %; HCT 41.8 % (39.0-53.0); HGB 13.2 gm/dL (13.0-17.5); Lymphocytes # (A) 1.6 k/uL (1.0-4.8); Lymphocytes % (A) 15 %; MCHC 31.5 g/dL (31.0-37.0); MCV 104.7 fL (80.0-100.0); Macrocytosis Slight; Mean Platelet Volume 9.2; Monocytes # (A) 0.6 k/uL (0-1.0); Monocytes % (A) 6 %; Neutrophils # (A) 7.8 k/uL (1.3-7.7); Neutrophils % (A) 76 %; Platelet Count 113 k/uL (150-450); RDW 13.5 % (11.5-15.5); WBC 10.2 k/uL (3.8-10.6)
[2021-01-14 05:56] LABS: Glucose,Whole Blood 97 mg/dL (75-99)
[2021-01-14] MEDS: THIAMINE 100 MG TAB PO SCH ×2 (06:45→15:50)
[2021-01-14] MEDS: ENOXAPARIN 40 MG/0.4 ML SYRINGE SQ SCH (08:15)
[2021-01-14] MEDS: FOLIC ACID 1 MG TAB PO SCH (08:15)
[2021-01-14] MEDS: THIAMINE 100 MG/ML 2 ML VIAL IVP SCH (08:15)
[2021-01-14] MEDS: PANTOPRAZOLE 40 MG/10 ML VIAL IVP SCH (08:15)
[2021-01-14] MEDS: LORazepam 2 MG/ML INJ IV PRN ×2 (08:16→22:13)
--- NOTE | 2021-01-14 10:09 | P.PN ---
Subjective Progress Note Date: 01/14/21 Principal diagnosis: Acute alcohol intoxication, respiratory failure. 40-year-old male, seen by Dr. Brooks in the emergency department. He was brought into the emergency department by EMS. Apparently the patient was found to be unresponsive by a friend. Apparently the patient is a regular drinker, and maybe even an alcoholic. He apparently been drinking earlier in the day. When his friend returned home, the patient apparently had a pulse, but would not wake up. EMS was contacted and brought the patient into the emergency room. He was given IV access. His blood glucose was 180. The patient was given Narcan without improvement. An oropharyngeal airway was placed. In the emergency department, because of his unresponsiveness, and inability to protect his airwa y, the patient was intubated by Dr. Brooks. He remains on the mechanical ventilator at this time. Currently, he's on the volume assist control mode, rate of 14, tidal volume 500, FiO2 40%, and PEEP of 5. Blood gases show pO2 105, pCO2 45, pH 7.34. He is on propofol 75 mcg/kg/m, saline at 75 is an hour, and Versed, at 4 mg an hour. The patient's alcohol level when he came into the emergency room was 556. The rest of his drug screen was negative. Not much more as noted about his history including ALLERGIES medications her past medical history. Progress note dated 01/14/2021. This is a 40-year-old male, who we saw yesterday in the emergency department. He was found by a friend to be unresponsive. EMS was called. The patient was intubated in the emergency department for airway protection. The patient had a alcohol level in the bloodstream of 557. Yesterday, at 6 PM, with excellent weaning parameters a very good RSBI, and a cuff leak, the patient was extubated. Yesterday, I repeat alcohol level was 186. The patient is currently not on any supplemental oxygen. He is receiving saline at 75 mL an hour. He is awake and alert. He did receive but a bit of Ativan yesterday for a possible alcohol withdrawal syndrome. When I asked him how much alcohol he drank, he states 6 beers, and 1/2 gallon of vodka a day. We are getting ask for a psychiatric consultation. White count is 10.2, hemoglobin 13.2, hematocrit 41.8, platelet count 213,000. Sodium 136, potassium 4, chlorides 105, CO2 26, anion gap 5, BUN 8, creatinine 0.75. A chest x-ray today looks relatively normal. Objective - Vital Signs Vital signs: Vital Signs Temp 97.8 F 01/14/21 08:00 Pulse 98 01/14/21 08:00 Resp 15 01/14/21 08:00 BP 158/99 01/14/21 08:00 Pulse Ox 95 01/14/21 08:00 Intake & Output 01/13/21 01/14/21 01/14/21 18:59 06:59 18:59 Intake Total 861.585 6039 150 Output Total 1025 1015 450 Balance -223.462 285 -300 Weight 107.955 kg 104.1 kg Intake: IV 225 900 150 Sodium Chloride 0.9% 1, 225 900 150 000 ml @ 75 mls/hr IV . [id number] REY Rx#:[id number] Intake, IV Titration 576.538 Amount Midazolam HCl 50 mg In 30.0 Sodium Chloride 0.9% 40 ml @ 1 MG/HR 1 mls/hr IV .Q24H REY Rx#:[id number] propofoL 1,000 mg In 546.538 Empty Bag 1 bag @ Titrate IV .Q0M REY Rx#: [id number] Oral 400 Output: Urine 1025 1015 450 Other: Voiding Method Indwelling Catheter Indwelling Catheter - Exam No acute distress, extubated, on room air. No acute distress. HEENT examination is grossly unremarkable. Neck supple. Full range of motion. No adenopathy thyromegaly or neck vein distention. Cardiovascular examination reveals regular rhythm rate. S1-S2 normal. No S3 or S4. No discernible murmur noted. Heart rate 108 bpm. Lungs reveal mostly clear breath sounds. Scattered rhonchi are still noted. No wheezes or crackles. Breath sounds are equal bilaterally. Abdomen soft bowel sounds are heard. No masses or tenderness. Extremities are intact. No cyanosis clubbing or edema. Skin is without rash or lesion. Neurologic examination is brief but nonfocal. - Labs CBC & Chem 7: 01/14/21 03:27 01/14/21 03:27 Labs: Abnormal Lab Results - Last 24 Hours (Table) 01/13/21 01/13/21 01/14/21 Range/Units 14:59 23:35 03:27 RBC (4.30-5.90) m/uL MCV (80.0-100.0) fL Plt Count (150-450) k/uL Neutrophils # (1.3-7.7) k/uL Sodium 136 L (137-145) mmol/L BUN 8 L (9-20) mg/dL POC Glucose (mg/dL) 73 L 103 H (75-99) mg/dL AST 111 H (17-59) U/L Total Protein 6.1 L (6.3-8.2) g/dL Albumin 3.3 L (3.5-5.0) g/dL 01/14/21 Range/Units 03:27 RBC 4.00 L (4.30-5.90) m/uL MCV 104.7 H (80.0-100.0) fL Plt Count 113 L (150-450) k/uL Neutrophils # 7.8 H (1.3-7.7) k/uL Sodium (137-145) mmol/L BUN (9-20) mg/dL POC Glucose (mg/dL) (75-99) mg/dL AST (17-59) U/L Total Protein (6.3-8.2) g/dL Albumin (3.5-5.0) g/dL Assessment and Plan Assessment: Acute alcohol intoxication with unresponsiveness. Status post intubation and mechanical ventilation because patient cannot protect his airway, on 01/12/2021. Status post extubation from mechanical ventilation on 01/13/2021, at 6 PM. History of chronic alcohol abuse. Rule out alcohol withdrawal syndrome. Plan: Plan dated 01/13/2021. The patient is evaluated. The patient is examined in the emergency department. Currently, the patient is on propofol, and Versed as noted above. We will try to make a bed for the patient in the emergency department. The Versed can be weaned off. We need a repeat alcohol level. Current laboratory data includes a white count 9.9, hemoglobin 14.9, hematocrit 48.3, and platelet count 140,000. PT and INR were 9.8 and 0.9, respectively. Blood gases show a PaO2 of 105, pCO2 45, and a pH of 7.34. Sodium 146, potassium 4.9, chlorides 116, CO2 19, anion gap 11, BUN 8, creatinine 0.74, and repeat lactic acid 1.8. AST and ALTs are normal. Albumin 3.4. Drug screen negative save for the elevated alcohol level. Urine is normal. Currently, his medications include Lovenox, Narcan, Protonix, propofol, saline, and thiamine. Prognosis is guarded. Plan dated 01/14/2021. The patient appears to be doing much better. He was extubated on January 13. The patient is not requiring any supplemental oxygen. The patient's getting saline at 75 mL an hour. We will ask for a psychiatric consultation. We are concerned about alcohol withdrawal syndrome. We will continue to provide Ativan per the [facility] protocol. Additional recommendations and suggestions are forthcoming. Prognosis is guarded. I'll review the med list and discontinue any unnecessary medications. Time with Patient: Greater than 30
--- NOTE | 2021-01-14 10:41 | XR ---
EXAMINATION TYPE: XR chest 1V portable DATE OF EXAM: 01/14/2021 COMPARISON: 01/13/2021 HISTORY: Respiratory failure TECHNIQUE: Single frontal view of the chest is obtained. FINDINGS: Endotracheal tube has been removed. Multiple overlying leads. Enteric catheter has been rem angel. No pleural effusion, focal consolidation or pneumothorax. Significant interval improvement. Hea rt size is stable, within normal limits. IMPRESSION: 1. No acute pulmonary disease. A significant interval improvement since prior exam.
[2021-01-14 11:33] LABS: Glucose,Whole Blood 99 mg/dL (75-99)
--- NOTE | 2021-01-14 12:21 | P.PN ---
Subjective Progress Note Date: 01/14/21 Principal diagnosis: altered mentation Patient is a 40-year-old male who was found unresponsive by his son and EMS was subsequently activated. He was brought to the hospital and subsequently was intubated secondary to altered mentation. In the ER his alcohol level was found to be 556. His hemoglobin was elevated at 18, platelet count 140, lactic acid 2.2, sodium 149, potassium 5.3, carbon dioxide 17, AST 63, CK 445. He was started on IV fluids. ICU was contacted and agreed with admission. He was extubated on the evening of 01/13. He had some ETOH withdrawal start that evening requiring Ativan. Patient seen and examined at bedside. He is awake and states that he had been on a arellano with his friend Caesar and had lots of alcohol. He is unable to tell me how much he typically drinks. He reports headach, bodyaches, and feeling aweful. General: non toxic, no distress, appears at stated age Derm: warm, dry Head: atraumatic, normocephalic, symmetric Eyes: EOMI, no lid lag, anicteric sclera Mouth: no lip lesion, mucus membranes moist Cardiovascular: S1S2 reg, no murmur, positive posterior tibial pulse bilateral, Lungs: CTA bilateral, no rhonchi, no rales , no accessory muscle use Abdominal: soft, nontender to palpation, no guarding, no appreciable organomega ly Ext: no gross muscle atrophy, no edema, no contractures, left hand with edema (Appears to be area of infiltrated IV) Neuro: No focal neuro deficits, moving all 4 extremities independently, no tremo rs Psych: Alert to self and place, lethargic and falls back asleep quickly ETOH intoxication on arrival with alcohol abuse and now experiencing withdrawal - CIWA - thiamine and folic acid - social consult - start Librium for w/d Thrombocytopenia - likely related to ETOH use - Follow CBC Dehydration, resolved Hypernatreami, resolved Lactic acidosis, resolved Toxic encephalopthy, resolved Acute respiratory failure due to altered mentation resolved DVT prophylaxis: Lovenox Discussed with: patient Anticipated discharge: unknown Anticipated discharge place: unknown A total of 25 minutes was spent on the care of this complex patient more than 50% of the time was spent in counseling and care coordination. Objective - Vital Signs Vital signs: Vital Signs Temp 97.8 F 01/14/21 08:00 Pulse 101 H 01/14/21 11:00 Resp 16 01/14/21 11:00 BP 150/72 01/14/21 11:00 Pulse Ox 95 01/14/21 11:00 Intake & Output 01/13/21 01/14/21 01/14/21 18:59 06:59 18:59 Intake Total 260.186 0441 375 Output Total 1025 1015 1120 Balance -223.462 285 -745 Weight 107.955 kg 104.1 kg Intake: IV 225 900 375 Sodium Chloride 0.9% 1, 225 900 375 000 ml @ 75 mls/hr IV . [id number] [facility] Rx#:[id number] Intake, IV Titration 576.538 Amount Midazolam HCl 50 mg In 30.0 Sodium Chloride 0.9% 40 ml @ 1 MG/HR 1 mls/hr IV .Q24H [facility] Rx#:[id number] propofoL 1,000 mg In 546.538 Empty Bag 1 bag @ Titrate IV .Q0M [facility] Rx#: [id number] Oral 400 Output: Urine 1025 1015 1120 Other: Voiding Method Indwelling Catheter Indwelling Catheter Indwelling Catheter - Labs CBC & Chem 7: 01/14/21 03:27 01/14/21 03:27 Labs: Abnormal Lab Results - Last 24 Hours (Table) 01/13/21 01/13/21 01/14/21 Range/Units 14:59 23:35 03:27 RBC (4.30-5.90) m/uL MCV (80.0-100.0) fL Plt Count (150-450) k/uL Neutrophils # (1.3-7.7) k/uL Sodium 136 L (137-145) mmol/L BUN 8 L (9-20) mg/dL POC Glucose (mg/dL) 73 L 103 H (75-99) mg/dL AST 111 H (17-59) U/L Total Protein 6.1 L (6.3-8.2) g/dL Albumin 3.3 L (3.5-5.0) g/dL 01/14/21 Range/Units 03:27 RBC 4.00 L (4.30-5.90) m/uL MCV 104.7 H (80.0-100.0) fL Plt Count 113 L (150-450) k/uL Neutrophils # 7.8 H (1.3-7.7) k/uL Sodium (137-145) mmol/L BUN (9-20) mg/dL POC Glucose (mg/dL) (75-99) mg/dL AST (17-59) U/L Total Protein (6.3-8.2) g/dL Albumin (3.5-5.0) g/dL
[2021-01-14] MEDS: SODIUM CHLORIDE 0.9% 1,000 ML IV SCH ×2 (12:37→22:51)
[2021-01-14] MEDS: chlordiazePOXIDE 25 MG CAP PO SCH ×2 (12:37→15:50)
--- NOTE | 2021-01-14 13:58 | P.CN ---
Psychiatric Consult - . Consult date: 01/14/21 Consult:: IDENTIFYING DATA: This patient is a 40-year-old unemployed male who was admitted for alcohol intoxication. HISTORY OF PRESENT ILLNESS: The patient presented to the hospital on 01/12/2021 for acute alcohol intoxication. The patient was found to be unresponsive by a friend who notified EMS services. Patient was reportedly found outside on the concrete and was unarousable. Upon presentation to the ER, the patient's alcohol level was found to be 556. The patient was subsequently transported to the ICU where he was intubated in order to protect his airway. The patient was extubated on 01/13/21. The patient was placed on CIWA protocol with ativan and started on Librium for acute alcohol withdrawal. Psychiatry has been consulted for evaluation and treatment of alcohol use disorder. The patient states that he was on a "arellano" with his friend and that they were drinking at least 2 and half gallons of vodka as well as many beers prior to this admission. The patient is a poor historian at this time regarding the events of this hospitalization. At this time, the patient is not reporting any significant mood symptoms. He is not reporting any depressive symptoms aside from difficulty sleeping. He is currently denying any suicidal or homicidal ideation, intention, and/or plan. He denies any prior attempts at suicide. He is currently not reporting any auditory or visual hallucinations. She denies any paranoia or other delusions. The patient admits that his primary problem is his heavy alcohol use. Patient reports that he began drinking alcohol at the age of 20 and has been drinking heavily most days per week. He states that typically he consumes at least 6 beers when he does drink. The patient reports multiple psychosocial stressors that contributed to his heavy alcohol use. He states that he was recently fired from his job last week because of his alcohol use and is now currently unemployed. Furthermore, the patient reports that his father at age 40 when the patient was 16 years old due to heavy alcohol use as well. As per history provided by the patient's nurse, the patient also reportedly in the past. He had a child with his ex- who shortly due to sepsis. Once he and his ex- divorce, the patient reportedly increased his alcohol use significantly. Patient states that he normally limits his drinking to 6 beers at a time but when he gets together with his friend, they tend to drink multiple gallons of hard liquor. The patient reports that the longest period of sobriety he has ever obtained since he started drinking was 30 days when he was admitted into rehab 2 years ago. He reports 2 prior inpatient rehabilitation stays for alcohol use disorder in the past. He has had previous trials of medications including the Vivitrol and Antabuse. He reports no success with these medications. He states that he goes to Alcoholics Anonymous but currently has no sponsor. He is currently not open to any outpatient services. PAST PSYCHIATRIC HISTORY: Patient has a history of alcohol abuse. The patient is only able to recall Antabuse and Vivitrol as prior medications he has trialed. The patient does report one prior inpatient psychiatric hospitalization but does not recall what it was for. He states that he was in 2002. Patient denies any psychiatric outpatient follow-up. Patient denies any history of suicide attempts in the past. PAST MEDICAL HISTORY: Patient denies any medical problems ALLERGIES: NO KNOWN DRUG ALLERGIES CHEMICAL DEPENDENCY HISTORY: Alcohol use disorder as per HPI. The patient also reportedly smokes one pack per day. He denies any marijuana or illicit drug use. FAMILY PSYCHIATRIC/SUBSTANCE USE HISTORY: The patient reports that his father due to heavy alcohol abuse at the age of 42. The patient also believes his mother has some unspecified mental illness. SOCIAL HISTORY: Patient was born and raised in [place], [place]. The patient states that he is single and has no children. As per history provided by the patient's nurse, the patient is reportedly and he had one child due to sepsis. The patient states that he has his master's in industrial management. 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 He currently lives by himself. MENTAL STATUS EXAM: General Appearance: Patient appears to be stated age is presenting as somnolent, pleasant, and cooperative. Patient appears to have fair hygiene and grooming wearing hospital gown with poor eye contact Behavior: Psychomotor activity appears to be elevated. The patient appears to be restless and is constantly tossing and turning in bed. Speech: Patient's speech is slurred, dysarthric at times, and nonspontaneous, low in volume, and monotone. Mood/Affect: Patient reports their mood is "pretty christophey", affect is somnolent and malaised. Suicidality/Homicidality: Patient denies having any suicidal or homicidal ideation intent or plan. Perceptions: Patient denies any visual hallucinations and denies any auditory hallucinations Though content/process: There is no evidence of any delusional thought content and thought process is linear and goal-directed. Memory and concentration: The patient is alert and oriented to person and time only. He is unable to recall events leading to his hospitalization and did not know that he was in [place]. Concentration appears to be fluctuating at this time. Judgment and insight: poor Laboratory Results WBC 10.2 k/uL (3.8-10.6) 01/14/21 03:27 RBC 4.00 m/uL (4.30-5.90) L 01/14/21 03:27 Hgb 13.2 gm/dL (13.0-17.5) 01/14/21 03:27 Hct 41.8 % (39.0-53.0) 01/14/21 03:27 MCV 104.7 fL (80.0-100.0) H 01/14/21 03:27 MCH 33.0 pg (25.0-35.0) 01/14/21 03:27 MCHC 31.5 g/dL (31.0-37.0) 01/14/21 03:27 RDW 13.5 % (11.5-15.5) 01/14/21 03:27 Plt Count 113 k/uL (150-450) L 01/14/21 03:27 MPV 9.2 01/14/21 03:27 Neutrophils % 76 % 01/14/21 03:27 Lymphocytes % 15 % 01/14/21 03:27 Monocytes % 6 % 01/14/21 03:27 Eosinophils % 0 % 01/14/21 03:27 Basophils % 1 % 01/14/21 03:27 Neutrophils # 7.8 k/uL (1.3-7.7) H 01/14/21 03:27 Lymphocytes # 1.6 k/uL (1.0-4.8) 01/14/21 03:27 Monocytes # 0.6 k/uL (0-1.0) 01/14/21 03:27 Eosinophils # 0.0 k/uL (0-0.7) 01/14/21 03:27 Basophils # 0.1 k/uL (0-0.2) 01/14/21 03:27 Macrocytosis Slight 01/14/21 03:27 PT 9.8 sec (9.0-12.0) 01/12/21 17:47 INR 0.9 (<1.2) 01/12/21 17:47 Sample Site rrad 01/13/21 05:58 ABG pH 7.34 (7.35-7.45) L 01/13/21 05:58 ABG pCO2 45 mmHg (35-45) 01/13/21 05:58 ABG pO2 105 mmHg (83-108) 01/13/21 05:58 ABG HCO3 25 mmol/L (21-25) 01/13/21 05:58 ABG Total CO2 26 mmol/L (19-24) H 01/13/21 05:58 ABG O2 Saturation 97.6 % (94-97) H 01/13/21 05:58 ABG Base Excess -1.3 mmol/L 01/13/21 05:58 David Test Yes 01/13/21 05:58 FiO2 40 % 01/13/21 05:58 Sodium 136 mmol/L (137-145) L 01/14/21 03:27 Potassium 4.0 mmol/L (3.5-5.1) 01/14/21 03:27 Chloride 105 mmol/L (98-107) 01/14/21 03:27 Carbon Dioxide 26 mmol/L (22-30) 01/14/21 03:27 Anion Gap 5 mmol/L 01/14/21 03:27 BUN 8 mg/dL (9-20) L 01/14/21 03:27 Creatinine 0.75 mg/dL (0.66-1.25) 01/14/21 03:27 Est GFR (CKD-EPI)AfAm >90 (>60 ml/min/1.73 sqM) 01/14/21 03:27 Est GFR (CKD-EPI)NonAf >90 (>60 ml/min/1.73 sqM) 01/14/21 03:27 Glucose 99 mg/dL (74-99) 01/14/21 03:27 POC Glucose (mg/dL) 99 mg/dL (75-99) 01/14/21 11:32 POC Glu Airframe And Powerplant Technician ID Cornelia Soares 01/14/21 11:32 Lactic Ac Sepsis Rflx Y 01/13/21 00:12 Plasma Lactic Acid Jose 1.8 mmol/L (0.7-2.0) 01/13/21 02:54 Calcium 8.4 mg/dL (8.4-10.2) 01/14/21 03:27 Total Bilirubin 0.9 mg/dL (0.2-1.3) 01/14/21 03:27 AST 111 U/L (17-59) H 01/14/21 03:27 ALT 35 U/L (4-49) 01/14/21 03:27 Alkaline Phosphatase 69 U/L (38-126) 01/14/21 03:27 Creatine Kinase 445 U/L (55-170) H 01/12/21 17:47 Total Protein 6.1 g/dL (6.3-8.2) L 01/14/21 03:27 Albumin 3.3 g/dL (3.5-5.0) L 01/14/21 03:27 Urine Color Light Yellow 01/12/21 17:37 Urine Appearance Clear (Clear) 01/12/21 17:37 Urine pH 5.0 (5.0-8.0) 01/12/21 17:37 Ur Specific [facility] 1.010 (1.001-1.035) 01/12/21 17:37 Urine Protein Trace (Negative) H 01/12/21 17:37 Urine Glucose (UA) Trace (Negative) H 01/12/21 17:37 Urine Ketones Negative (Negative) 01/12/21 17:37 Urine Blood Trace (Negative) H 01/12/21 17:37 Urine Nitrite Negative (Negative) 01/12/21 17:37 Urine Bilirubin Negative (Negative) 01/12/21 17:37 Urine Urobilinogen <2.0 mg/dL (<2.0) 01/12/21 17:37 Ur Leukocyte Esterase Negative (Negative) 01/12/21 17:37 Urine WBC <1 /hpf (0-5) 01/12/21 17:37 Urine Mucus Rare /hpf (None) H 01/12/21 17:37 Salicylates <1.0 mg/dL 01/12/21 17:47 Urine Opiates Screen Not Detected (NotDetected) 01/12/21 17:37 Ur Oxycodone Screen Not Detected (NotDetected) 01/12/21 17:37 Urine Methadone Screen Not Detected (NotDetected) 01/12/21 17:37 Ur Propoxyphene Screen Not Detected (NotDetected) 01/12/21 17:37 Acetaminophen <10.0 ug/mL 01/12/21 17:47 Ur Barbiturates Screen Not Detected (NotDetected) 01/12/21 17:37 U Tricyclic Antidepress Not Detected (NotDetected) 01/12/21 17:37 Ur Phencyclidine Scrn Not Detected (NotDetected) 01/12/21 17:37 Ur Amphetamines Screen Not Detected (NotDetected) 01/12/21 17:37 U Methamphetamines Scrn Not Detected (NotDetected) 01/12/21 17:37 U Benzodiazepines Scrn Not Detected (NotDetected) 01/12/21 17:37 Urine Cocaine Screen Not Detected (NotDetected) 01/12/21 17:37 U Marijuana (THC) Screen Not Detected (NotDetected) 01/12/21 17:37 Serum Alcohol 187 mg/dL 01/13/21 16:15 Coronavirus (PCR) Not Detected (Not Detectd) 01/12/21 18:40 Vital Signs Temp 97.6 F 01/14/21 12:00 Pulse 111 H 01/14/21 13:00 Resp 16 01/14/21 13:00 BP 166/110 01/14/21 13:00 Pulse Ox 96 01/14/21 13:00 Intake & Output 01/13/21 01/14/21 01/14/21 18:59 06:59 18:59 Intake Total 346.977 2493 525 Output Total 1025 1015 1370 Balance -223.462 285 -845 Weight 107.955 kg 104.1 kg Intake: IV 225 900 525 Sodium Chloride 0.9% 1, 225 900 525 000 ml @ 75 mls/hr IV . [id number] [facility] Rx#:[id number] Intake, IV Titration 576.538 Amount Midazolam HCl 50 mg In 30.0 Sodium Chloride 0.9% 40 ml @ 1 MG/HR 1 mls/hr IV .Q24H [facility] Rx#:[id number] propofoL 1,000 mg In 546.538 Empty Bag 1 bag @ Titrate IV .Q0M [facility] Rx#: [id number] Oral 400 Output: Urine 1025 1015 1370 Other: Voiding Method Indwelling Catheter Indwelling Catheter Indwelling Catheter IMPRESSIONS: Alcohol use disorder - patient presents to the hospital for acute alcohol intoxication and is now currently expressing withdrawal Substance-induced mood disorder - although not overtly endorsing any significant symptoms of depression or bipolar disorder at this time, the patient does report symptoms of low energy, difficulty sleeping, elevated anxiety and irregular mood. This is likely due to his heavy alcohol abuse. Thrombocytopenia PLAN: -At this time patient DOES NOT meet criteria for inpatient psychiatric admission. -Would recommend the following medication changes/additions: CIWA protocol with Ativan. Agree with Librium 25 mg TID for alcohol withdrawal Start Trazodone 100 mg by mouth at bedtime for insomnia We will consider reinitiation of naltrexone or adding acamprosate to the patient's medication regimen for management of alcohol use disorder. -Therapeutic interventions utilized during this psychiatric evaluation include: Cognitive reframing, contingency planning, and motivational interviewing. -Recommend social work consult for referral to intensive outpatient services or inpatient rehabilitation services for alcohol use disorder -Psychiatry will continue to follow. 01/14/21 13:58
[2021-01-14 17:22] LABS: Glucose,Whole Blood 146 mg/dL (75-99)
[2021-01-14] MEDS ORDERED: traZODone HCL 100 MG TAB PO SCH (21:00)
[2021-01-15] MEDS: chlordiazePOXIDE 25 MG CAP PO SCH ×3 (01:09→16:02)
[2021-01-15 03:58] LABS: Basophils # (A) 0.1 k/uL (0-0.2); Basophils % (A) 1 %; Eosinophils # (A) 0.1 k/uL (0-0.7); Eosinophils % (A) 2 %; HCT 43.4 % (39.0-53.0); HGB 14.4 gm/dL (13.0-17.5); Lymphocytes # (A) 1.5 k/uL (1.0-4.8); Lymphocytes % (A) 23 %; MCH 34.5 pg (25.0-35.0); MCHC 33.2 g/dL (31.0-37.0); MCV 103.9 fL (80.0-100.0); Macrocytosis Slight; Monocytes # (A) 0.4 k/uL (0-1.0); Monocytes % (A) 6 %; Neutrophils # (A) 4.3 k/uL (1.3-7.7); Neutrophils % (A) 66 %; RBC 4.17 m/uL (4.30-5.90); RDW 13.3 % (11.5-15.5); WBC 6.5 k/uL (3.8-10.6)
[2021-01-15 04:27] LABS: ALT 33 U/L (4-49); AST 91 U/L (17-59); African American GFR (CKD) >90 (>60 ml/min/1.73 sqM); Albumin 3.5 g/dL (3.5-5.0); Alkaline Phosphatase 62 U/L (38-126); Anion Gap 8 mmol/L; Blood Urea Nitrogen 8 mg/dL (9-20); Carbon Dioxide 23 mmol/L (22-30); Chloride 103 mmol/L (98-107); Glucose 92 mg/dL (74-99); Magnesium 1.7 mg/dL (1.6-2.3); Non-African American GFR(CKD) >90 (>60 ml/min/1.73 sqM); Phosphorus 3.4 mg/dL (2.5-4.5); Platelet Count 97 k/uL (150-450); Potassium 3.8 mmol/L (3.5-5.1); Sodium 134 mmol/L (137-145); Stomatocytes Present; Total Bilirubin 1.3 mg/dL (0.2-1.3); Total Protein 6.3 g/dL (6.3-8.2)
[2021-01-15] MEDS ORDERED: POTASSIUM CHLORIDE ER 20 MEQ TAB.ER PO SCH (05:00)
[2021-01-15] MEDS ORDERED: Magnesium Replacement Protocol 1 EACH MISC MISCELLANE PRN (05:30)
[2021-01-15] MEDS: MAGNESIUM SULFATE-D5W PMX 1 GM in DEXTROSE/WATER 1 100ML.BAG IVPB SCH ×2 (05:34→06:40)
[2021-01-15] MEDS: THIAMINE 100 MG TAB PO SCH ×2 (06:40→16:02)
[2021-01-15] MEDS ORDERED: PANTOPRAZOLE 40 MG TABLET PO SCH (07:30)
[2021-01-15] MEDS: ENOXAPARIN 40 MG/0.4 ML SYRINGE SQ SCH (08:54)
[2021-01-15] MEDS: FOLIC ACID 1 MG TAB PO SCH (08:54)
--- NOTE | 2021-01-15 09:35 | P.PN ---
Subjective Progress Note Date: 01/15/21 Principal diagnosis: Acute alcohol intoxication, respiratory failure. 40-year-old male, seen by Dr. Brooks in the emergency department. He was brought into the emergency department by EMS. Apparently the patient was found to be unresponsive by a friend. Apparently the patient is a regular drinker, and maybe even an alcoholic. He apparently been drinking earlier in the day. When his friend returned home, the patient apparently had a pulse, but would not wake up. EMS was contacted and brought the patient into the emergency room. He was given IV access. His blood glucose was 180. The patient was given Narcan without improvement. An oropharyngeal airway was placed. In the emergency department, because of his unresponsiveness, and inability to protect his airwa y, the patient was intubated by Dr. Brooks. He remains on the mechanical ventilator at this time. Currently, he's on the volume assist control mode, rate of 14, tidal volume 500, FiO2 40%, and PEEP of 5. Blood gases show pO2 105, pCO2 45, pH 7.34. He is on propofol 75 mcg/kg/m, saline at 75 is an hour, and Versed, at 4 mg an hour. The patient's alcohol level when he came into the emergency room was 556. The rest of his drug screen was negative. Not much more as noted about his history including ALLERGIES medications her past medical history. Progress note dated 01/14/2021. This is a 40-year-old male, who we saw yesterday in the emergency department. He was found by a friend to be unresponsive. EMS was called. The patient was intubated in the emergency department for airway protection. The patient had a alcohol level in the bloodstream of 557. Yesterday, at 6 PM, with excellent weaning parameters a very good RSBI, and a cuff leak, the patient was extubated. Yesterday, I repeat alcohol level was 186. The patient is currently not on any supplemental oxygen. He is receiving saline at 75 mL an hour. He is awake and alert. He did receive but a bit of Ativan yesterday for a possible alcohol withdrawal syndrome. When I asked him how much alcohol he drank, he states 6 beers, and 1/2 gallon of vodka a day. We are getting ask for a psychiatric consultation. White count is 10.2, hemoglobin 13.2, hematocrit 41.8, platelet count 213,000. Sodium 136, potassium 4, chlorides 105, CO2 26, anion gap 5, BUN 8, creatinine 0.75. A chest x-ray today looks relatively normal. Progress note dated 01/15/2021. 40-year-old male, who was seen 2 days ago in the emergency department. He was found by a friend to be unresponsive. EMS was called. The patient was intubated in the emergency department for airway protection. The patient's initial alcohol level was 557. Currently, the patient's on room air. He is getting saline at 75 mL an hour. He is eating. He discontinued. He got 1 mg of Ativan all of last night. Hence, the patient can be transferred out of the i ntensive care unit onto the general medical floor. Psychiatry was consulted. We did speak to them yesterday. White count 6.5, hemoglobin 14.4 hematocrit 43.4 and platelet count 97,000. Sodium 134, potassium 3.8, chlorides 103, CO2 23, anion gap 8, BUN 8, creatinine 0.66. Chest x-ray is normal. Objective - Vital Signs Vital signs: Vital Signs Temp 98.7 F 01/15/21 04:00 Pulse 90 01/15/21 08:00 Resp 12 01/15/21 07:00 BP 135/90 01/15/21 08:00 Pulse Ox 96 01/15/21 08:00 Intake & Output 01/14/21 01/15/21 01/15/21 18:59 06:59 18:59 Intake Total 900 900 250 Output Total 2650 1625 300 Balance -1750 -725 -50 Weight 100.5 kg Intake: IV 900 900 150 Sodium Chloride 0.9% 1, 900 900 150 000 ml @ 75 mls/hr IV . [id number] [facility] Rx#:[id number] Oral 100 Output: Urine 2650 1625 300 Other: Voiding Method Indwelling Catheter Indwelling Catheter Indwelling Catheter - Exam No acute distress, extubated, on room air. No acute distress. HEENT examination is grossly unremarkable. Neck supple. Full range of motion. No adenopathy thyromegaly or neck vein distention. Cardiovascular examination reveals regular rhythm rate. S1-S2 normal. No S3 or S4. No discernible murmur noted. Heart rate 90 bpm. Lungs reveal mostly clear breath sounds. Scattered rhonchi are still noted. No wheezes or crackles. Breath sounds are equal bilaterally. Abdomen soft bowel sounds are heard. No masses or tenderness. Extremities are intact. No cyanosis clubbing or edema. Skin is without rash or lesion. Neurologic examination is brief but nonfocal. - Labs CBC & Chem 7: 01/15/21 03:31 01/15/21 03:31 Labs: Abnormal Lab Results - Last 24 Hours (Table) 01/14/21 01/15/21 01/15/21 Range/Units 17: 03:31 03:31 RBC 4.17 L (4.30-5.90) m/uL MCV 103.9 H (80.0-100.0) fL Plt Count 97 L (150-450) k/uL Sodium 134 L (137-145) mmol/L BUN 8 L (9-20) mg/dL POC Glucose (mg/dL) 146 H (75-99) mg/dL AST 91 H (17-59) U/L Microbiology - Last 24 Hours (Table) 01/12/21 17:47 Gram Stain - Final Sputum Sputum Culture - Final Assessment and Plan Assessment: Acute alcohol intoxication with unresponsiveness. Status post intubation and mechanical ventilation because patient cannot protect his airway, on 01/12/2021. Status post extubation from mechanical ventilation on 01/13/2021, at 6 PM. History of chronic alcohol abuse. Rule out alcohol withdrawal syndrome. Plan: Plan dated 01/13/2021. The patient is evaluated. The patient is examined in the emergency department. Currently, the patient is on propofol, and Versed as noted above. We will try to make a bed for the patient in the emergency department. The Versed can be weaned off. We need a repeat alcohol level. Current laboratory data includes a white count 9.9, hemoglobin 14.9, hematocrit 48.3, and platelet count 140,000. PT and INR were 9.8 and 0.9, respectively. Blood gases show a PaO2 of 105, pCO2 45, and a pH of 7.34. Sodium 146, potassium 4.9, chlorides 116, CO2 19, anion gap 11, BUN 8, creatinine 0.74, and repeat lactic acid 1.8. AST and ALTs are normal. Albumin 3.4. Drug screen negative save for the elevated alcohol level. Urine is normal. Currently, his medications include Lovenox, Narcan, Protonix, propofol, saline, and thiamine. Prognosis is guarded. Plan dated 01/14/2021. The patient appears to be doing much better. He was extubated on January 13. The patient is not requiring any supplemental oxygen. The patient's getting saline at 75 mL an hour. We will ask for a psychiatric consultation. We are concerned about alcohol withdrawal syndrome. We will continue to provide Ativan per the [facility] protocol. Additional recommendations and suggestions are forthcoming. Prognosis is guarded. I'll review the med list and discontinue any unnecessary medications. Plan dated 01/15/2021. The patient's doing well. The patient can be transferred out of the intensive care unit. We'll see the patient moving forward only as needed. The patient has no respiratory or hemodynamic issues. The patient's on room air. The patient received only 1 mg of Ativan all through the night. Additional recommendations and suggestions to follow. Psychiatry was consulted. The patient needs to be counseled significantly about the risk of additional alcohol intake. Apparently, the patient has a friend, who is a nurse, at the [facility], who puts IVs in the patient to hydrate him after he goes on binges of alcohol intoxication. Time with Patient: Less than 30
--- NOTE | 2021-01-15 09:54 | XR ---
EXAMINATION TYPE: XR chest 1V portable DATE OF EXAM: 01/15/2021 COMPARISON: 01/14/2021 HISTORY: Respiratory failure TECHNIQUE: Single frontal view of the chest is obtained. FINDINGS: Multiple overlying leads. Heart size is within normal limits. There is a mild patchy left basilar airspace opacity suggestive of atelectasis or developing pneumonia. The right lung is clear. No pleural effusion or pneumothorax. The left costophrenic angle was not entirely visualized. IMPRESSION: 1. The left costophrenic angle is not entirely visualized. There is mild patchy airspace opacity at l eft lung base which may represent atelectasis or pneumonia.
--- NOTE | 2021-01-15 11:04 | CDI ---
Documentation Clarification Form Date: 01/15/2021 10:31:40 AM From: Celestina Garibay RN, CCDS Admit Date: 01/12/2021 07:07:00 PM Patient Name: Jimi Steele Visit Number: [id number] Discharge Date: ATTENTION: The Clinical Documentation Specialists (CDI) and [facility] Coding Staff appreciate your assistance in clarifying documentation. Please respond to the clarification below the line at the bottom and electronically sign. The CDI & [facility] Coding staff will review the response and follow-up if needed. Please note: Queries are made part of the Legal Health Record. If you have any questions, please contact the author of this message via ITS. Dr. Edward Camejo 01/13 Respiratory failure is documented Based on this information and the findings below, is there an additional diagnosis that is clinically appropriate for this patient? History/Risk Factors: Alcohol abuse : Clinical Indicators: 40-year-old male who present to ED on 01/12 via EMS. He was found unresponsive, given Narcan without improvement. An oropharyngeal airway was placed. He had minimal respiratory effort, no gag reflex prior to intubation. His inability to protect his airway, the patient was intubated due to respiratory failure. ED assessment documents dried vomitus on left side of face/head. 01/12 Vital signs: 170/112 139 10 97.6 100% BVM 01/12 Lungs: Coarse breath sounds bilaterally after intubation 01/12 (rbrach) ABG: pH 7.25 pO2 >400 pCO2 50 Lactic acid 3.0, 2.2 Treatment: ICU Monitoring Mechanical ventilation (per pulmonary) Monitor O2 Sat's per protocol Is there an additional diagnosis that is clinically appropriate for this patient? [ ] Acute Hypoxic Respiratory Failure (pO2 <60 mm Hg or SpO2 <91% on room air) [ X ] Acute Hypercapnic Respiratory Failure (pCO2 >50 and pH <7.35) [ ] Other Diagnosis, please specify [ ] Unable to determine (Template Last Revised: October 2020) MTDD
--- NOTE | 2021-01-15 13:27 | P.PN ---
Progress Note - Text Progress Note Date: 01/15/21 Interval History: Patient was seen at bedside. Patient was that he is feeling much better today. He continues endorse some muscle pain but states that overall he is feeling better. He is alert and oriented in all spheres at this time. He is not reporting any suicidal or homicidal ideation, intention, and/or plan. He is not reporting any auditory or visual hallucinations. He is denying any paranoia or other delusions. Patient expresses that he is interested in going back on vivitrol for management of his alcohol use disorder. His main concern is that he may not be able to afford the medication as he currently has no insurance. He is open to trying a trial of naltrexone today. Risks, benefits, and alternatives were discussed patient and he is open on trying the medication at this time. He denies any opiate use. The patient reports that he is able to sleep very well last night and is tolerating trazodone well. Mental Status Exam: General Appearance: Patient appears to be stated age is alert, directable, and cooperative. Hygiene and grooming appears improved. Patient is dressed in hospital gown. Behavior: Patient is calmly seated without any agitated behavior. Psychomotor activity appears normal today. Eye contact is appropriate. Speech: Patient's speech is fluent and nonpressured. Spontaneous, low in volume, but with otherwise regular tone and rate. Mood/Affect: Mood is improving mildly, affect is congruent and constricted. Suicidality/Homicidality: Patient denies having any suicidal or homicidal ideation intent or plan. Perceptions: Patient denies any visual hallucinations and denies any auditory hallucinations Though content/process: There is no evidence of any delusional thought content and thought process is linear and goal-directed. Memory and concentration: AOX3, grossly intact for the purposes of this session Judgment and insight: Improving mildly IMPRESSIONS: Alcohol use disorder Substance-induced mood disorder Thrombocytopenia PLAN: -At this time patient DOES NOT meet criteria for inpatient psychiatric admission. -Would recommend the following medication changes/additions: CIWA protocol with Ativan. Agree with Librium 25 mg TID for alcohol withdrawal Continue Trazodone 100 mg by mouth at bedtime for insomnia Start naltrexone 50 mg by mouth daily for alcohol use disorder -Recommend social work consult for referral to intensive outpatient services or inpatient rehabilitation services for alcohol use disorder -Psychiatry will continue to follow.
[2021-01-15 14:51] VITALS: BP 127/81; PULSE 94; RESP 14; TEMP 98.4
[2021-01-15] MEDS ORDERED: NICOTINE 21MG/24HR PATCH TRANSDERM SCH (15:30)
[2021-01-15] MEDS ORDERED: SODIUM CHLORIDE 0.9% 500 ML 500 ML IV ONE (16:03)
--- NOTE | 2021-01-15 16:07 | P.PN ---
Subjective Progress Note Date: 01/15/21 (delayed charting seen at 0900) Principal diagnosis: altered mentation Patient is a 40-year-old male who was found unresponsive by his friend and EMS was subsequently activated. He was brought to the hospital and subsequently was intubated secondary to altered mentation. In the ER his alcohol level was found to be 556. His hemoglobin was elevated at 18, platelet count 140, lactic acid 2.2, sodium 149, potassium 5.3, carbon dioxide 17, AST 63, CK 445. He was started on IV fluids. ICU was contacted and agreed with admission. He was extubated on the evening of 01/13. He had some ETOH withdrawal start that evening requiring Ativan. He was started on librium. His withdrawal symptoms did well. Patient seen and examined at bedside. His main complaint is left buttock pain and all over leg cramping. He also reports a slight headache, slight tremors, slight nausea, and slight cold sweats. He overall just feels terrible. General: non toxic, no distress, appears at stated age Derm: warm, dry Head: atraumatic, normocephalic, symmetric Eyes: EOMI, no lid lag, anicteric sclera Mouth: no lip lesion, mucus membranes moist Cardiovascular: S1S2 reg, no murmur, positive posterior tibial pulse bilateral, Lungs: CTA bilateral, no rhonchi, no rales , no accessory muscle use Abdominal: soft, nontender to palpation, no guarding, no appreciable organomegaly Ext: no gross muscle atrophy, no edema, no contractures, left hand with edema (Appears to be area of infiltrated IV) Left buttock with area of erythema and induration Neuro: No focal neuro deficits, moving all 4 extremities independently, no tremors Psych: Alert to self and place, lethargic and falls back asleep quickly ETOH intoxication on arrival with alcohol abuse and now experiencing withdrawal - CIWA - thiamine and folic acid -Social work recs -Psych recs appreciated: Does not need inpatient psychiatric hospitalization, naltrexone and trazodone - Librium for w/d Rhabdomyolysis secondary to unresponsive episode -Resume IV fluids -Monitor CK -Continue to monitor right buttock Thrombocytopenia - likely related to ETOH use - Follow CBC Tobacco abuse -Cessation -Nicotine replacement Dehydration, resolved Hypernatremia, resolved Lactic acidosis, resolved Toxic encephalopthy, resolved Acute respiratory failure due to altered mentation resolved DVT prophylaxis: Lovenox Discussed with: patient Anticipated discharge: unknown Anticipated discharge place: unknown A total of 25 minutes was spent on the care of this complex patient more than 50% of the time was spent in counseling and care coordination. Objective - Vital Signs Vital signs: Vital Signs Temp 98.4 F 01/15/21 14:00 Pulse 94 01/15/21 14:00 Resp 14 01/15/21 14:00 BP 127/81 01/15/21 14:00 Pulse Ox 98 01/15/21 14:00 Intake & Output 01/14/21 01/15/21 01/15/21 18:59 06:59 18:59 Intake Total 900 900 250 Output Total 2650 1625 300 Balance -1750 -725 -50 Weight 100.5 kg Intake: IV 900 900 150 Sodium Chloride 0.9% 1, 900 900 150 000 ml @ 75 mls/hr IV . [id number] [facility] Rx#:[id number] Oral 100 Output: Urine 2650 1625 300 Other: Voiding Method Indwelling Catheter Indwelling Catheter Indwelling Catheter - Labs CBC & Chem 7: 01/15/21 03:31 01/15/21 03:31 Labs: Abnormal Lab Results - Last 24 Hours (Table) 01/14/21 01/15/21 01/15/21 Range/Units 17:21 03:31 03:31 RBC 4.17 L (4.30-5.90) m/uL MCV 103.9 H (80.0-100.0) fL Plt Count 97 L (150-450) k/uL Sodium 134 L (137-145) mmol/L BUN 8 L (9-20) mg/dL POC Glucose (mg/dL) 146 H (75-99) mg/dL AST 91 H (17-59) U/L Creatine Kinase (55-170) U/L 01/15/21 Range/Units 03:31 RBC (4.30-5.90) m/uL MCV (80.0-100.0) fL Plt Count (150-450) k/uL Sodium (137-145) mmol/L BUN (9-20) mg/dL POC Glucose (mg/dL) (75-99) mg/dL AST (17-59) U/L Creatine Kinase 2479 H* (55-170) U/L Microbiology - Last 24 Hours (Table) 01/12/21 17:47 Gram Stain - Final Sputum Sputum Culture - Final
[2021-01-15] MEDS ORDERED: SODIUM CHLORIDE 0.9% 1,000 ML IV SCH (16:15)
--- NOTE | 2021-01-15 17:03 | P.DS ---
Providers Date of admission: 01/12/21 19:07 Expected date of discharge: 01/15/21 Attending physician: Vonda Mosley DO Consults: 01/12/21 19:07 Consult Physician Stat Consulting Provider: Marck Sullivan Consult Reason/Comments: ICU management Do you want consulting provider notified?: Already Contacted 01/14/21 08:04 Consult Physician Routine Consulting Provider: Ricardo Phoenix Consult Reason/Comments: ETOH abuse Do you want consulting provider notified?: Yes Primary care physician: Stated None Hospital Course: Discharge Diagnosis: ETOH intoxication on arrival with alcohol abuse and now experiencing withdrawal Rhabdomyolysis secondary to unresponsive episode Thrombocytopenia Tobacco abuse Dehydration, resolved Hypernatremia, resolved Lactic acidosis, resolved Toxic encephalopthy, resolved Acute respiratory failure due to altered mentation resolved Hospital Course: Patient is a 40-year-old male who was found unresponsive by his friend and EMS was subsequently activated. He was brought to the hospital and subsequently was intubated secondary to altered mentation. In the ER his alcohol level was found to be 556. His hemoglobin was elevated at 18, platelet count 140, lactic acid 2.2, sodium 149, potassium 5.3, carbon dioxide 17, AST 63, CK 445. He was started on IV fluids. ICU was contacted and agreed with admission. He was extubated on the evening of 01/13. He had some ETOH withdrawal start that evening requiring Ativan. He was started on librium. His withdrawal symptoms did well. He was found to have rhabdo. He wanted to leave AMA, he was alert and oriented X 3, clear thinking. He understands that he just received librium and that if he goes home and drinks he could overdose and . I encouraged the patient to stay and he declined. For physical exam see progress note same date A total of 25 minutes of time were spent preparing this complex discharge summary . Plan - Discharge Summary Discharge Rx Participant: No New Discharge Prescriptions: No Action No Known Home Medications Discharge Medication List No Known Home Medications 01/13/21 [History] Follow up Appointment(s)/Referral(s): None,Stated [Primary Care Provider] - 1-2 days
[2021-01-16] MEDS ORDERED: NALTREXONE HCL 50 MG TAB PO SCH (09:00)
== END 2021-01-15 16:55 | disposition left against medical advice (07) | DRG 894 ==
LOC: EC 17:14 → 2SICU 19:07
PROVIDERS: ADMIT Internal Medicine; ATTEND Internal Medicine
PROC: 5A1945Z Respiratory Ventilation, 24-96 Consecutive Hours (ICD-10-PCS; principal; 2021-01-12)
PROC: 0BH17EZ Insertion of Endotracheal Airway into Trachea, Via Natural or Artificial Opening (ICD-10-PCS; principal; 2021-01-12)
DX: F10.229 Alcohol dependence with intoxication, unspecified (principal); J96.02 Acute respiratory failure with hypercapnia; G92 Toxic encephalopathy; E87.4 Mixed disorder of acid-base balance; E87.0 Hyperosmolality and hypernatremia; M62.82 Rhabdomyolysis; D69.6 Thrombocytopenia, unspecified; F10.239 Alcohol dependence with withdrawal, unspecified; F19.94 Other psychoactive substance use, unspecified with psychoactive substance-induced mood disorder; Z20.822 Contact with and (suspected) exposure to COVID-19; Y90.8 Blood alcohol level of 240 mg/100 ml or more; S50.812A Abrasion of left forearm, initial encounter; S80.212A Abrasion, left knee, initial encounter; E86.0 Dehydration; F17.210 Nicotine dependence, cigarettes, uncomplicated; Z71.6 Tobacco abuse counseling; Z56.0 Unemployment, unspecified
CPT/HCPCS: 31500; 36415; 36600; 70450; 71045; 80053; 80143; 80179; 80306; 80320; 81001; 82550; 82805; 83605; 83735; 84100; 85025; 85610; 87070; 87205; 87635; 93005; 94002; 94003; 96361; 96374; 96375; 99291